=== PATIENT | female | born 1980 | race Caucasian/White ===

== ENCOUNTER 2018-12-22 01:11 | Inpatient (IN) | payer OTHER ==
[2018-12-22] MEDS ORDERED: LACTATED RINGER'S 1,000 ML IV (01:36)
[2018-12-22] MEDS ORDERED: AMPICILLIN 2 GM/NS (PMX) 100 ML (01:37)
[2018-12-22] MEDS: AMPICILLIN 2 GM/NS (PMX) 100 ML IV (01:44)
[2018-12-22] MEDS: LACTATED RINGER'S 1,000 ML IV (01:44)
[2018-12-22] MEDS ORDERED: CARBOPROST 250 MCG INJ IM ×2 (02:00→02:30)
[2018-12-22] MEDS ORDERED: LIDOCAINE 1% (MPF) 30 ML INJ INJ (02:00)
[2018-12-22] MEDS ORDERED: METHYLERGONOVINE 0.2 MG INJ IM (02:00)
[2018-12-22] MEDS ORDERED: OXYTOCIN 30 UNITS/LR 500 ML IV ×2 (02:00→02:30)
[2018-12-22] MEDS ORDERED: MISOPROSTOL 200 MCG TAB PR ×2 (02:00→02:30)
[2018-12-22] MEDS ORDERED: BUTORPHANOL 2 MG INJ IV ×2 (02:00)
[2018-12-22] MEDS ORDERED: SENNA/DOCUSATE NA (8.6MG/50MG) TAB PO (02:30)
[2018-12-22] MEDS ORDERED: DIBUCAINE 1% 30 GM OINT TOP (02:30)
[2018-12-22] MEDS ORDERED: DIPHENHYDRAMINE 25 MG CAP PO (02:30)
[2018-12-22] MEDS ORDERED: ONDANSETRON 4 MG TAB PO (02:30)
[2018-12-22] MEDS ORDERED: HYDROCODONE/APAP (5/325) TAB PO (02:30)
[2018-12-22] MEDS ORDERED: MAGNESIUM HYDROXIDE 30ML CUP PO (02:30)
[2018-12-22] MEDS ORDERED: NA PHOSPHATE/BIPHOS 133 ML ENEMA PR (02:30)
[2018-12-22] MEDS ORDERED: DIPHENHYDRAMINE 50 MG INJ IV (02:30)
[2018-12-22] MEDS ORDERED: ONDANSETRON 4 MG INJ IV (02:30)
[2018-12-22] MEDS: OXYTOCIN 30 UNITS/LR 500 ML IV ×4 (02:42→06:53)
[2018-12-22] MEDS: IBUPROFEN 600 MG TAB PO ×5 (03:01→23:30)
[2018-12-22] MEDS: LANOLIN HPA 1 PKT TOP (05:51)
[2018-12-22] MEDS: BENZOCAINE 20% 56 ML SPRAY TOP (05:52)
[2018-12-22] MEDS: WITCH HAZEL/GLYCERIN PAD PR (05:52)
[2018-12-22] MEDS ORDERED: AMPICILLIN 1 GM/NS (PMX) 50 ML IV (06:00)
[2018-12-22] MEDS: SENNA/DOCUSATE NA (8.6MG/50MG) TAB PO ×2 (08:23→21:22)
[2018-12-22] MEDS: HYDROCODONE/APAP (5/325) TAB PO (08:24)
[2018-12-22] MEDS: LACTATED RINGER'S 1,000 ML IV* ×3 (10:05→18:05)
[2018-12-23] MEDS: LACTATED RINGER'S 1,000 ML IV (01:21)
[2018-12-23] MEDS: IBUPROFEN 600 MG TAB PO ×4 (06:00→23:49)
[2018-12-23] MEDS ORDERED: FENTAnyl 50 MCG/ML VIAL (08:19)
[2018-12-23] MEDS ORDERED: CEFAZOLIN 1 GM INJ (08:19)
[2018-12-23] MEDS ORDERED: FENTAnyl 50 MCG/ML VIAL IV ×3 (08:30)
[2018-12-23] MEDS ORDERED: MEPERIDINE 25 MG INJ IV (08:30)
[2018-12-23] MEDS ORDERED: ALBUTEROL 0.083% (NEB) 2.5 MG/3 ML AMP HHN (08:30)
[2018-12-23] MEDS ORDERED: IPRATROPIUM (NEB) 0.5 MG/2.5 ML AMP HHN (08:30)
[2018-12-23] MEDS ORDERED: LABETALOL HCL 20MG INJ IV (08:30)
[2018-12-23] MEDS ORDERED: ONDANSETRON 4 MG INJ IV (08:30)
[2018-12-23] MEDS ORDERED: OXYCODONE/ACETAMINOPHEN (5/325) TAB PO ×2 (08:30)
[2018-12-23] MEDS ORDERED: HYDROmorphONE 1 MG/5 ML IV SYRINGE IV ×3 (08:30)
[2018-12-23] MEDS ORDERED: DIPHENHYDRAMINE 50 MG INJ IV (08:30)
[2018-12-23] MEDS ORDERED: EPHEDrine 25 MG/5 ML SYG IV (08:30)
[2018-12-23] MEDS ORDERED: hydrALAzine 20 MG INJ IV (08:30)
[2018-12-23] MEDS ORDERED: PROPOFOL 20 ML (09:00)
[2018-12-23] MEDS ORDERED: LIDOCAINE 100 MG SYRINGE (09:00)
[2018-12-23] MEDS ORDERED: EPHEDrine 25 MG/5 ML SYG (09:00)
[2018-12-23] MEDS: SENNA/DOCUSATE NA (8.6MG/50MG) TAB PO ×2 (09:00→23:49)
[2018-12-23] MEDS: WITCH HAZEL/GLYCERIN PAD PR (18:03)
[2018-12-24] MEDS: LACTATED RINGER'S 1,000 ML IV ×4 (01:59→09:30)
[2018-12-24] MEDS: IBUPROFEN 600 MG TAB PO ×2 (06:05→11:32)
[2018-12-24] MEDS: DIPHTH/TET/ACEL PERTUSS (ADULT) 0.5 ML VIAL IM* (09:35)
[2018-12-24] MEDS: VARICELLA VACCINE LIVE/PF 1,350 UNIT/0.5 ML ML SC* (09:35)
[2018-12-24] MEDS: MEASLES,MUMPS,RUBELLA VACCINE INJ SC* (09:35)
[2018-12-24] MEDS: SENNA/DOCUSATE NA (8.6MG/50MG) TAB PO (09:35)
== END 2018-12-24 18:13 | disposition home or self-care (01) | DRG 798 ==
LOC: OBT 01:11 → L-D 01:13 → OBT 01:20 → L-D 01:20 → PP1 04:22
PROC: 10E0XZZ Delivery of Products of Conception, External Approach (ICD-10-PCS; principal; 2018-12-23 08:25)
PROC: 0UT70ZZ Resection of Bilateral Fallopian Tubes, Open Approach (ICD-10-PCS; 2018-12-23 08:25)
PROC: 10907ZC Drainage of Amniotic Fluid, Therapeutic from Products of Conception, Via Natural or Artificial Opening (ICD-10-PCS; 2018-12-23 08:25)
DX: O99.214 Obesity complicating childbirth (principal); Z37.0 Single live birth; Z3A.40 40 weeks gestation of pregnancy
CPT/HCPCS: 85025; 85610; 85730; 86592; 86703; 86850; 86900; 86901; 87086; 87340; 88302; 90716